=== PATIENT | female | born 1960 | race Caucasian/White ===

== ENCOUNTER 2019-05-03 11:16 | Emergency (ER) | payer MEDICARE, OTHER ==
[~2019-05-03] VITALS: Ht 167.6 cm; Wt 63.5 kg
[2019-05-03 13:01] LABS: BASOPHILS ABSOLUTE AUTO 0.06 K/mm3 (0.00-0.23); BASOPHILS PERCENT AUTO 0 % (0-2); EOSINOPHILS ABSOLUTE AUTO 0.02 K/mm3 (0.00-0.68); EOSINOPHILS PERCENT AUTO 0 % (0-6); Hematocrit 47.8 % (33.0-51.0); Hemoglobin 16.6 g/dL (11.5-16.0); IMMATURE GRAN ABSOLUTE AUTO 0.04 K/mm3 (0.00-0.10); IMMATURE GRAN PERCENT AUTO 0 % (0-1); LYMPHOCYTES PERCENT AUTO 14 % (21-46); MONOCYTES ABSOLUTE AUTO 0.83 K/mm3 (0.16-1.47); MONOCYTES PERCENT AUTO 5 % (4-13); Mean Corpuscular HGB 31.7 pg (26.0-34.0); Mean Corpuscular HGB Conc 34.7 g/dL (31.5-36.5); Mean Corpuscular Volume 91 fL (80-100); Mean Platelet Volume 11.4 fL (9.1-12.4); NEUTROPHILS ABSOLUTE AUTO 12.25 K/mm3 (1.96-9.15); NEUTROPHILS PERCENT AUTO 80 % (41-73); Platelet Count 330 K/mm3 (150-400); RDW Coefficient Variation 12.6 % (11.7-14.2); RDW Standard Deviation 42.5 fL (35.1-46.3); Red Blood Cell Count 5.23 M/mm3 (3.80-5.20)
[2019-05-03 13:11] LABS: Source, Urine Clean Catch
[2019-05-03 13:20] LABS: Bilirubin, Urine Neg (Neg); Blood, Urine 4+ (Neg); Glucose Qualitative, Urine Neg (Neg); Ketones, Urine 3+ (Neg); Leukocyte Esterase, Urine 3+ (Neg); Nitrite, Urine Neg (Neg); Protein, Urine 3+ (Neg); Urobilinogen, Urine 1+ (Normal)
[2019-05-03 13:23] LABS: Alanine Aminotransfer (ALT/SGP 31 U/L (12-78); Albumin, Blood 4.3 g/dL (3.4-5.0); Alk Phos 83 U/L (50-136); Anion Gap 10 mmol/L (6-16); Aspartate Aminotrans (AST/SGOT 95 U/L (12-37); Bilirubin, Total 1.3 mg/dL (0.1-1.0); Blood Urea Nitrogen 25 mg/dL (8-24); Bun/Creatinine Ratio 29.1 (12.0-20.0); CO2, Blood 29 mmol/L (21-32); Calcium, Blood 9.5 mg/dL (8.5-10.1); Chloride, Blood 96 mmol/L (98-108); Creatinine, Blood 0.86 mg/dL (0.40-1.00); Globulin, Blood 4.3 g/dL (2.2-4.0); Glomerular Filtration Rate >60 (60-); Glucose, Blood 181 mg/dL (70-99); Magnesium, Blood 1.8 mg/dL (1.6-2.4); Potassium, Blood 2.8 mmol/L (3.5-5.5); Sodium, Blood 135 mmol/L (136-145); Total Protein, Blood 8.6 g/dL (6.4-8.2)
[2019-05-03 13:44] LABS: Appearance, Urine Hazy (Clear); Color, Urine Yellow (P-Yellow)
[2019-05-03 13:52] LABS: White Blood Cells, Urine 25-50 /hpf (0-5)
[2019-05-03 13:53] LABS: Bacteria Many /hpf; Squamous Epithelial Cells Many /hpf (Few)
[2019-05-03] MEDS ORDERED: ONDA4ODT MM (18:01)
[2019-05-03] MEDS ORDERED: Cipro500 MG PO (18:01)
== END 2019-05-03 18:55 | disposition home or self-care (01) ==
LOC: ER 11:16
PROVIDERS: Physician Assistant
DX: K52.9 Noninfective gastroenteritis and colitis, unspecified (principal); E86.0 Dehydration; F17.200 Nicotine dependence, unspecified, uncomplicated
CPT/HCPCS: 80053; 81001; 83690; 83735; 85025; 87077; 87086; 87186; 96361; 96374; 96376; 99284-25; J2405; J7030

== ENCOUNTER 2023-02-09 13:15 | Day surgery (SDC) | payer MEDICARE, OTHER ==
[~2023-02-09] VITALS: Ht 167.6 cm; Wt 59.3 kg
[~2023-02-09 13:15] MED LIST: Cipro500 MG PO; ONDA4ODT MM
[2023-02-09] MEDS ORDERED: ATOR10 (13:42)
[2023-02-09] MEDS ORDERED: BANOPHEN25 MG (13:43)
[2023-02-09] MEDS ORDERED: Finacea50 GM (13:43)
[2023-02-09] MEDS ORDERED: Vitamin B Comple1 EA (13:43)
[2023-02-09] MEDS ORDERED: VITAMIN D31000 UNI1 (13:53)
[2023-02-09] MEDS ORDERED: NAPR220 (13:54)
[2023-02-09] MEDS ORDERED: IBUP200 (13:54)
[2023-02-09 16:30] VITALS: BP 166/79
== END 2023-02-09 16:20 | disposition home or self-care (01) ==
LOC: ORSCSDS 13:15
PROVIDERS: Surgery
PROC: 0DBP8ZX Excision of Rectum, Via Natural or Artificial Opening Endoscopic, Diagnostic (ICD-10-PCS; principal; 2023-02-09 14:30)
DX: Z12.11 Encounter for screening for malignant neoplasm of colon (principal); R19.5 Other fecal abnormalities; K62.1 Rectal polyp; K57.30 Diverticulosis of large intestine without perforation or abscess without bleeding; D37.4 Neoplasm of uncertain behavior of colon; K64.1 Second degree hemorrhoids; Z87.891 Personal history of nicotine dependence; I10 Essential (primary) hypertension; Z79.899 Other long term (current) drug therapy
CPT/HCPCS: 88305; A9270; J0461; J2001; J2405; J2704; J7120

== ENCOUNTER → 2024-03-25 | Outpatient (CLI) | payer OTHER ==
[~2024-03-25] MED LIST changes: +ATOR10; +BANOPHEN25 MG; +Finacea50 GM; +IBUP200; +NAPR220; +VITAMIN D31000 UNI1; +Vitamin B Comple1 EA
[2024-04-01 17:22] LABS: HPV HIGH RISK BY TMA Not Detected; HPV SOURCE Cervical
== END ==
LOC: LAB SHORT 15:03 → LAB 15:03
PROVIDERS: Physician Assistant
DX: Z01.419 Encounter for gynecological examination (general) (routine) without abnormal findings (principal)
CPT/HCPCS: 87624; G0123

== ENCOUNTER 2024-05-14 20:20 | Inpatient (IN) | payer OTHER ==
[~2024-05-14] VITALS: Ht 167.6 cm; Wt 57.7 kg
[~2024-05-14 20:20] MED LIST changes: -ATOR10; +ATOR10 PO; +Lactated Ringer's 1,000 ML IV SCH
[2024-05-14 20:43] LABS: PO2 Arterial 268 mmHg (80-100); pH Blood Arterial 7.56 (7.35-7.45)
[2024-05-14 20:45] LABS: PCO2 Arterial 19.2 mmHg (35-45)
[2024-05-14] MEDS ORDERED: Ondansetron HCl 2 MG / ML 2ML Vial ONE (20:50)
[2024-05-14] MEDS ORDERED: Ondansetron HCl 2 MG / ML 2ML Vial IV ONE (20:55)
[2024-05-14 21:07] LABS: BASOPHILS ABSOLUTE AUTO 0.03 K/mm3 (0.00-0.23); BASOPHILS PERCENT AUTO 0 % (0-2); EOSINOPHILS PERCENT AUTO 0 % (0-6); Hematocrit 46.2 % (33.0-51.0); Hemoglobin 16.3 g/dL (11.5-16.0); IMMATURE GRAN ABSOLUTE AUTO 0.02 K/mm3 (0.00-0.10); IMMATURE GRAN PERCENT AUTO 0 % (0-1); LYMPHOCYTES ABSOLUTE AUTO 2.41 K/mm3 (0.84-5.20); LYMPHOCYTES PERCENT AUTO 31 % (21-46); MONOCYTES ABSOLUTE AUTO 0.24 K/mm3 (0.16-1.47); MONOCYTES PERCENT AUTO 3 % (4-13); Mean Corpuscular HGB 32.3 pg (26.0-34.0); Mean Corpuscular HGB Conc 35.3 g/dL (31.5-36.5); Mean Corpuscular Volume 92 fL (80-100); Mean Platelet Volume 11.9 fL (9.1-12.4); NEUTROPHILS PERCENT AUTO 66 % (41-73); Platelet Count 311 K/mm3 (150-400); RDW Coefficient Variation 13.1 % (11.7-14.2); RDW Standard Deviation 43.8 fL (35.1-46.3); Red Blood Cell Count 5.05 M/mm3 (3.80-5.20)
[2024-05-14 21:26] LABS: Albumin, Blood 3.9 g/dL (3.4-5.0); Bilirubin, Total 0.7 mg/dL (0.1-1.0); Bun/Creatinine Ratio 18.5 (12.0-20.0); Calcium, Blood 9.4 mg/dL (8.5-10.1); Creatinine, Blood 0.92 mg/dL (0.40-1.00); Potassium, Blood 4.5 mmol/L (3.5-5.5); Total Protein, Blood 7.9 g/dL (6.4-8.2)
[2024-05-14] MEDS ORDERED: Heparin Sodium,Porcine/0.5 NS 500 ML IV SCH ×2 (22:05→23:45)
[2024-05-14] MEDS ORDERED: Heparin Sodium 5000 Units/ML 1ML MDV IV ONE ×2 (22:05→23:45)
[2024-05-14 23:30] LABS: Anti-Xa UFH, PHA Monitoring <0.10 IU/mL; International Normalized Ratio 1.03
[2024-05-14] MEDS ORDERED: ChlordiazePOXIDE 25 MG Cap PO PRN ×2 (23:45)
[2024-05-14] MEDS ORDERED: FLU VACC TS2024-25(6MOS UP)/PF 45 MCG/0.5 ML SYRINGE IM SCH (23:45)
[2024-05-14] MEDS ORDERED: Acetaminophen 325 MG TABLET PO PRN (23:45)
[2024-05-15] VITALS (8 sets, daily range): BP systolic 102–152; BP diastolic 65–118
[2024-05-15] MEDS ORDERED: HydrALAZINE HCl 20 MG / ML 1ML Vial IV PRN ×2 (00:05→09:50)
[2024-05-15] MEDS ORDERED: Ondansetron HCl 2 MG / ML 2ML Vial IV PRN (00:05)
[2024-05-15] MEDS ORDERED: LORazepam 2 MG/ML 1ML Injection IV PRN ×4 (00:05→09:50)
[2024-05-15] MEDS ORDERED: Lactated Ringer's 1,000 ML IV ONE (01:36)
[2024-05-15] MEDS ORDERED: Albuterol 2.5 MG/3 ML VIAL INH PRN (03:45)
[2024-05-15 06:06] LABS: BASOPHILS ABSOLUTE AUTO 0.04 K/mm3 (0.00-0.23); BASOPHILS PERCENT AUTO 0 % (0-2); EOSINOPHILS ABSOLUTE AUTO 0.01 K/mm3 (0.00-0.68); EOSINOPHILS PERCENT AUTO 0 % (0-6); Hematocrit 41.8 % (33.0-51.0); Hemoglobin 14.9 g/dL (11.5-16.0); IMMATURE GRAN ABSOLUTE AUTO 0.04 K/mm3 (0.00-0.10); IMMATURE GRAN PERCENT AUTO 0 % (0-1); LYMPHOCYTES ABSOLUTE AUTO 4.54 K/mm3 (0.84-5.20); LYMPHOCYTES PERCENT AUTO 33 % (21-46); MONOCYTES ABSOLUTE AUTO 1.17 K/mm3 (0.16-1.47); MONOCYTES PERCENT AUTO 8 % (4-13); Mean Corpuscular HGB 32.8 pg (26.0-34.0); Mean Corpuscular HGB Conc 35.6 g/dL (31.5-36.5); Mean Corpuscular Volume 92 fL (80-100); Mean Platelet Volume 11.2 fL (9.1-12.4); NEUTROPHILS ABSOLUTE AUTO 8.14 K/mm3 (1.96-9.15); NEUTROPHILS PERCENT AUTO 58 % (41-73); Platelet Count 272 K/mm3 (150-400); RDW Coefficient Variation 13.2 % (11.7-14.2); Red Blood Cell Count 4.54 M/mm3 (3.80-5.20); White Blood Cell Count 13.94 K/mm3 (4.00-11.30)
[2024-05-15 06:36] LABS: Magnesium, Blood 1.7 mg/dL (1.6-2.4)
[2024-05-15 06:44] LABS: Alanine Aminotransfer (ALT/SGP 19 U/L (12-78); Albumin, Blood 3.2 g/dL (3.4-5.0); Albumin/Globulin Ratio 0.9 (0.8-1.8); Alk Phos 60 U/L (50-136); Anion Gap 12 mmol/L (3-11); Aspartate Aminotrans (AST/SGOT 41 U/L (12-37); Bilirubin, Total 0.6 mg/dL (0.1-1.0); Blood Urea Nitrogen 17 mg/dL (8-24); Bun/Creatinine Ratio 19.2 (12.0-20.0); CHOL/HDL RATIO 2.6; CO2, Blood 26 mmol/L (21-32); Calcium, Blood 8.4 mg/dL (8.5-10.1); Chloride, Blood 103 mmol/L (98-108); Cholesterol 228 mg/dL (50-200); Creatinine, Blood 0.89 mg/dL (0.40-1.00); Globulin, Blood 3.4 g/dL (2.2-4.0); Glomerular Filtration Rate 73 (60-); Glucose, Blood 108 mg/dL (70-99); HDL Cholesterol 88 mg/dL (>39); LDL/HDL RATIO 1.4; Low Density Lipoprotein Chol 120 mg/dL (0-110); Potassium, Blood 3.2 mmol/L (3.5-5.5); Sodium, Blood 138 mmol/L (136-145); Thyroid Stimulating Hormone 0.897 uIU/mL (0.360-4.800); Total Protein, Blood 6.6 g/dL (6.4-8.2); Triglycerides 99 mg/dL (30-160); Very Low Density Lipoprot Chol 19 mg/dL (6-32)
[2024-05-15] MEDS ORDERED: Dose Adjust by Pharmacy XX STA (07:04)
[2024-05-15] MEDS ORDERED: Potassium Chloride 20 MEQ TabCR PO ONE (08:00)
[2024-05-15] MEDS ORDERED: Thiamine HCl 100 MG in NS 50 ML IV SCH (09:00)
[2024-05-15] MEDS ORDERED: Folic Acid 1 MG in NS 50 ML IV SCH (09:00)
[2024-05-15] MEDS ORDERED: Atorvastatin 40 MG Tab PO SCH (09:00)
[2024-05-15] MEDS ORDERED: Aspirin 81 MG Chew PO SCH (09:00)
[2024-05-15] MEDS ORDERED: ChlordiazePOXIDE 25 MG Cap PO PRN ×2 (09:45)
[2024-05-15] MEDS ORDERED: Heparin Sodium 1000 Units/ML 10ML MDV ONE (11:15)
[2024-05-15] MEDS ORDERED: NS 250 ML IV ONE (11:15)
[2024-05-15] MEDS ORDERED: NS 1,000 ML IV ONE ×2 (11:15→12:13)
[2024-05-15] MEDS ORDERED: Nitroglycerin 2 MG/20 ML BTL ONE (11:15)
[2024-05-15] MEDS ORDERED: Verapamil HCL 2.5 MG/ML 2ML Injection ONE (11:21)
[2024-05-15] MEDS ORDERED: Midazolam HCl 1MG / ML 2ML Vial ONE (12:13)
[2024-05-15] MEDS ORDERED: FentaNYL Citrate 50 MCG/ML 2 ML Injection ONE (12:13)
--- NOTE | 2024-05-15 12:17 | NUR ---
PT LEFT TO CARD SELLER AND DETACHED LR @ [facility]. CALL PLACED TO PHARMACY TOLD ABOUT STOPPED HEAPRIN. PT WAS TAKEN VIA BED.
--- NOTE | 2024-05-15 13:19 | NUR ---
PATIENT RETURNED FROM [facility], NO INTERVENTIONS WERE DONE, WILL NOT BE RESTARTING [facility] DRIP. VITAL SIGNS STABLE, SITE LOOKS GOOD WITHOUT BLOOD, NO HEMATOMA AND BAND OVER SITE. PATIENT REMINDED TO NOT USE ARM AND A TRAY WAS ORDERED. PATIENT HAS CALL LIGHT WITHIN REACH AND BED AT THE LOWEST POSITION.
--- NOTE | 2024-05-15 13:20 | NUR ---
BEDSIDE RN GIVEN TO PCU 14 NURSE. R RADIAL SITE CHECKED. VSS ON RA
--- NOTE | 2024-05-15 16:52 | NUR ---
END OF SHIFT SUMMARY: PT A&OX4 AND ACTIVE IN HER CARE. ON TELE SHOWING SINUS RYTHM, 02 SATURATION ABOVE 92% ON ROOM AIR. PT DENIED CHEST PAIN/PRESURE THORUGHOUT SHIFT. HAD AN ANGIOGRAM DONE WITH INSERTION SITE AT RIGHT RADIAL. NO HEMATOMA OR BLEEDING AND A TEGADERM WAS PLACED WITH THE SPLINT BOARD OVER IT. PT REPORTED DRINKING REGULARLY AND CIWA PROTOCOL IS ORDERED. INITIAL CIWA WAS GRADED AT 1. AN ECHO AND CT WAS DONE IN THE ER AND BOTH CAME BACK NEGATIVE. [facility] WAS DISCONTINUED PER EMAR. WILL REPORT TO ONCOMING MIRROR PAINTER RN.
[2024-05-16] VITALS: BP 121/59
[2024-05-16 03:00] VITALS: BP 128/72
[2024-05-16 04:11] LABS: BASOPHILS ABSOLUTE AUTO 0.05 K/mm3 (0.00-0.23); BASOPHILS PERCENT AUTO 1 % (0-2); EOSINOPHILS ABSOLUTE AUTO 0.06 K/mm3 (0.00-0.68); EOSINOPHILS PERCENT AUTO 1 % (0-6); Hematocrit 41.2 % (33.0-51.0); Hemoglobin 14.2 g/dL (11.5-16.0); IMMATURE GRAN ABSOLUTE AUTO 0.01 K/mm3 (0.00-0.10); IMMATURE GRAN PERCENT AUTO 0 % (0-1); LYMPHOCYTES PERCENT AUTO 46 % (21-46); MONOCYTES ABSOLUTE AUTO 0.56 K/mm3 (0.16-1.47); MONOCYTES PERCENT AUTO 6 % (4-13); Mean Corpuscular HGB 32.1 pg (26.0-34.0); Mean Corpuscular HGB Conc 34.5 g/dL (31.5-36.5); Mean Corpuscular Volume 93 fL (80-100); Mean Platelet Volume 11.6 fL (9.1-12.4); NEUTROPHILS ABSOLUTE AUTO 4.11 K/mm3 (1.96-9.15); NEUTROPHILS PERCENT AUTO 46 % (41-73); Platelet Count 225 K/mm3 (150-400); RDW Coefficient Variation 13.2 % (11.7-14.2); RDW Standard Deviation 45.1 fL (35.1-46.3); Red Blood Cell Count 4.43 M/mm3 (3.80-5.20); White Blood Cell Count 8.89 K/mm3 (4.00-11.30)
[2024-05-16 04:33] LABS: Bun/Creatinine Ratio 22.7 (12.0-20.0); Calcium, Blood 8.8 mg/dL (8.5-10.1); Creatinine, Blood 0.62 mg/dL (0.40-1.00); Potassium, Blood 3.8 mmol/L (3.5-5.5)
--- NOTE | 2024-05-16 05:53 | NUR ---
SHIFT SUMMARY PATIENT ALERT AND ORIENTED X4. HAD NO COMPLAINTS OF PAIN OR SHORTNESS OF BREATH. ON ROOM AIR WITH SPO2 >95%. VITAL SIGNS STABLE, SINUS RHYTHM ON TELE. NO ACUTE ISSUES NOTED OVERNIGHT. WILL CONTINUE TO MONITOR. CALL LIGHT WITHIN REACH.
[2024-05-16 08:50] VITALS: BP 128/73
[2024-05-16] MEDS ORDERED: Losartan Potassium 25 MG Tab PO SCH (09:05)
[2024-05-16] MEDS ORDERED: Acetaminophen650 M1 PO (14:46)
[2024-05-16] MEDS ORDERED: ASPI81CH PO (14:46)
[2024-05-16] MEDS ORDERED: MULVITA PO (14:47)
[2024-05-16] MEDS ORDERED: LOSA25 PO (14:47)
[2024-05-16] MEDS ORDERED: B-1100 M1 PO (14:47)
[2024-05-16] MEDS ORDERED: FOLI1 PO (14:47)
--- NOTE | 2024-05-16 15:14 | NUR ---
DISHARGE SUMMARY PT IS A&OX4, RESPONDS APPROPRIATLY. PT EXITED ROOM INTO HALLWAY AND EXPLAINED THERE WAS A SPIDER IN HER BED AND STATED SHE SMASHED IT. RN ASKED PT TO SHOW HER THE SPIDER AND REPORTED BACK THAT NO SPIDER WAS LOCATED. PT STATED SHE FELT SCARED TO GO BACK TO BED AND APPEARED ANXIOUS AND HYPERFOCUSED ON THE SPIDER. CONCEREND COULD BE R/T ALCOHOL WITHDRAW DUE TO PTS ETOH HX. INCREASED AGITATION AND ANXIETY. PROVIDER AWARE. ON TELE, HR IN THE 60-70'S AT NSR. DENIES CP/SOB. ON RA WITH SATS IN THE 90'S. LUNG SOUNDS CLEAR. INDEPENDENT IN THE ROOM. IV REMOVED. DISCHARGE PLAN DISCUSSED AND QUESTIONS ANSWERED. MEDICATION FAXED TO PREFERRED PHARMACY. PT ESCORTED OUT BY PRINTER MACHINE ON FOOT WITH ALL BELONGINGS.
== END 2024-05-16 15:05 | disposition home or self-care (01) | DRG 391 ==
LOC: ER 20:20 → ERHOLD 23:58 → PCU 23:58 → EDBEDREQ 05-15 00:17 → PCU 05-15 10:02
PROVIDERS: Internal Medicine; Student in an Organized Health Care Education/Training Program; ADMIT Student in an Organized Health Care Education/Training Program
PROC: 4A023N7 Measurement of Cardiac Sampling and Pressure, Left Heart, Percutaneous Approach (ICD-10-PCS; principal; 2024-05-15)
PROC: B215YZZ Fluoroscopy of Left Heart using Other Contrast (ICD-10-PCS; 2024-05-15)
PROC: B211YZZ Fluoroscopy of Multiple Coronary Arteries using Other Contrast (ICD-10-PCS; 2024-05-15)
DX: A08.4 Viral intestinal infection, unspecified (principal); J96.01 Acute respiratory failure with hypoxia; E87.3 Alkalosis; I25.10 Atherosclerotic heart disease of native coronary artery without angina pectoris; J44.9 Chronic obstructive pulmonary disease, unspecified; E11.9 Type 2 diabetes mellitus without complications; M06.9 Rheumatoid arthritis, unspecified; F41.9 Anxiety disorder, unspecified; F17.210 Nicotine dependence, cigarettes, uncomplicated; F10.10 Alcohol abuse, uncomplicated; Z88.4 Allergy status to anesthetic agent; Z79.899 Other long term (current) drug therapy; Z98.51 Tubal ligation status; Z98.890 Other specified postprocedural states
CPT/HCPCS: 36415; 36600; 71045; 71260; 76937; 80048; 80053; 80061; 82803; 82947; 83036; 83690; 83735; 83880; 84443; 84484; 85025; 85379; 85520; 85610; 85730; 93005; 93010; 93306; 93458; 94762; 96374; 99152; 99153; 99285-25; A9270; C1769; C1887; C1894; J1644; J2250; J2405; J3010; J3411; J7030; J7050; J7120; Q9967

== ENCOUNTER → 2025-02-20 | Outpatient (CLI) | payer OTHER ==
[~2025-02-20] MED LIST changes: +ASPI81CH PO; +Acetaminophen650 M1 PO; +B-1100 M1 PO; +FOLI1 PO; +LOSA25 PO; -Lactated Ringer's 1,000 ML IV SCH; +MULVITA PO
== END ==
LOC: LAB SHORT 15:48 → LAB 15:48
DX: N39.0 Urinary tract infection, site not specified (principal)
CPT/HCPCS: 87077; 87086; 87186